=== PATIENT | female | born 1985 | race Caucasian/White ===

== ENCOUNTER 2017-06-11 10:48 | Emergency (ER) | payer SELFPAY ==
[2017-06-11 11:59] LABS: BACTERIA,URINE 0 /HPF (0-FEW); BILIRUBIN,URINE NEG (NEG); CLARITY,URINE CLEAR; COLOR,URINE YELLOW; GLUCOSE,URINE NEG (NEG); NITRITE,URINE NEG (NEG); RBC,URINE 0 /HPF (0-2); SPERM,URINE PRESENT /HPF; SQUAMOUS EPITHELIAL CELL,UR OCC /LPF; UROBILINOGEN,URINE 0.2 mg/dL (0.2 mg/dL); WBC,URINE 0 /HPF (0-4)
--- NOTE | 2017-06-11 12:21 | ED.ADGEN ---
Past History Past Medical History: Ovarian Cyst Past Surgical History: , Tubal ligation, Other Alcohol Use: Occasionally Drug Use: Marijuana Adult General Chief Complaint Chief Complaint Pelvic pain HPI HPI Patient is a 5-year-old female presents with intermittent pelvic pain weeks and dyspareunia last evening. Pain is located in the suprapubic region, described as dull and aching. It is rated moderate to severe worse with palpation and position change. It is improved with distraction. Patient denies flank pain, hematuria, urinary frequency and urgency. No history of kidney stones. Denies vaginal discharge or odor. Last menstrual period was 3 weeks ago. Previous tubal ligation and . No other abdominal surgeries. No other symptoms or complaints. Review of Systems Review of Systems Review symptoms as per history of present illness. All other review of symptoms negative. Current Medications Current Medications Current Medications Medications (Trade) Dose Ordered Sig/Juwan Start Time Stop Time Status Last Admin Dose Admin Acetaminophen/ Hydrocodone Bitart (Lortab 5/325) 1 tab 1X ONCE 06/11/17 12:30 06/11/17 12:31 DC 06/11/17 12:28 1 TAB Allergies Allergies Allergies Coded Allergies Type Severity Reaction Last Updated Verified cefazolin Allergy Unknown Rash 06/11/17 Yes morphine Allergy Unknown Rash 06/11/17 Yes ondansetron Allergy Unknown Nausea and Vomiting 06/11/17 Yes Physical Exam Physical Exam Constitutional: Well developed, well nourished, no acute distress, non-toxic appearance. [] HENT: Normocephalic, atraumatic, bilateral external ears normal, oropharynx moist, no oral exudates, nose normal. [] Eyes: PERRLA, EOMI, conjunctiva normal, no discharge. [] Neck: Normal range of motion, no tenderness, supple, no stridor. [] Cardiovascular:Heart rate regular rhythm, no murmur [] Lungs & Thorax: Bilateral breath sounds clear to auscultation [] Abdomen: Bowel sounds normal, soft, no tenderness, no masses, no pulsatile masses. : No vaginal discharge, no vaginal lesions. Cervix closed, no lesions , scant clear discharge, suprapubic pain, cervical motion pain. No adnexal masses or fullness. [] Skin: Warm, dry, no erythema. [] Back: No tenderness, no CVA tenderness. [] Extremities: No tenderness. [] Neurologic: Alert and oriented X 3, normal motor function, normal sensory function, no focal deficits noted. [] Psychologic: Affect normal, judgement normal, mood normal. [] Current Patient Data Vital Signs Vital Signs Date Time Temp Pulse Resp B/P (MAP) Pulse Ox O2 Delivery O2 Flow Rate FiO2 06/11/17 14:11 59 18 119/74 (89) 99 Room Air 06/11/17 10:50 98.3 Lab Results Laboratory Tests Test 06/11/17 11:35 06/11/17 11:50 Urine Collection Type Unknown Urine Color Yellow Urine Clarity Clear Urine pH 7.0 Urine Specific Stollings 1.015 Urine Protein Neg (NEG-TRACE) Urine Glucose (UA) Neg mg/dL (NEG) Urine Ketones (Stick) Neg mg/dL (NEG) Urine Blood Neg (NEG) Urine Nitrite Neg (NEG) Urine Bilirubin Neg (NEG) Urine Urobilinogen Dipstick 0.2 mg/dL (0.2 mg/dL) Urine Leukocyte Esterase Neg (NEG) Urine RBC 0 /HPF (0-2) Urine WBC 0 /HPF (0-4) Urine Squamous Epithelial Cells Occ /LPF Urine Bacteria 0 /HPF (0-FEW) Urine Sperm Present /HPF POC Urine HCG, Qualitative hcg negative (Negative) Microbiology 06/11/17 Wet Prep - Final, Complete EKG EKG [] Radiology/Procedures Radiology/Procedures [US pelvis: Collapsed left ovarian cyst. Essentially normal per radiology report.] Course & Med Decision Making Course & Med Decision Making Pertinent Labs and Imaging studies reviewed. (See chart for details) [Pelvic pain, undifferentiated. Possible collapsing left ovarian cyst. Recommend continued supportive care with outpatient [employer] follow-up. Return precautions reviewed.] Final Impression Final Impression [#1 pelvic pain and female] Problems: Dragon Disclaimer Dragon Disclaimer This electronic medical record was generated, in whole or in part, using a voice recognition dictation system. CORY RIVERA DO Jun 11, 2017 12:21
[2017-06-11] MEDS ORDERED: HYDROcodone/APAP 5/325MG 1 TAB TABLET PO ONE (12:30)
--- NOTE | 2017-06-11 13:40 | RAD ---
Exam performed: Pelvic Ultrasound. Indication: Intense pelvic pain for a few weeks. Patient's mother at 37 from ovarian cancer Date of Service: 06/11/17. Comparison: None available Technique: Transabdominal and transvaginal Findings: The uterus is anteverted and measures9.5 x 5.0 x 3.6 cm. The endometrial stripe measures 0.68 cm. There is trace amount of free fluid in the and endocervical canal. Both ovaries are normal. The right ovary measures 3.9 x 1.7 x 2.5 cm , the left ovary measures 4.5 x 2.7 x 3.4 cm. There is a complex cyst measuring 1.6 x 1.3 x 0.57 cm perhaps a collapsing cyst. There is no solid or cystic mass lesion. There is small amount of free fluid in the posterior cul-de-sac Impression: 1. Essentially unremarkable exam.
[2017-06-11 14:11] VITALS: BP 119/74
[2017-06-12 17:11] LABS: CHLAMYDIA PROBE Negative (Negative)
== END 2017-06-11 14:13 | disposition home or self-care (01) ==
LOC: ER 10:48
DX: R10.2 Pelvic and perineal pain (principal); N83.209 Unspecified ovarian cyst, unspecified side; Z98.51 Tubal ligation status; Z98.890 Other specified postprocedural states; Z88.5 Allergy status to narcotic agent; Z88.8 Allergy status to other drugs, medicaments and biological substances
CPT/HCPCS: 36415; 76830; 76856; 81001; 81025; 87491; 87591; 99285; Q0111

== ENCOUNTER 2021-08-01 21:03 | Emergency (ER) | payer BC ==
[~2021-08-01] VITALS: Ht 149.9 cm; Wt 56.0 kg
[2021-08-01 21:10] VITALS: BP 136/91
--- NOTE | 2021-08-01 21:41 | PHYS DOC ---
Past History Past Medical History: Ovarian Cyst (JOSÉ ANTONIO CLINTON APRN) Past Surgical History: , Tubal ligation, Other (JOSÉ ANTONIO CLINTON APRN) Alcohol Use: Occasionally Drug Use: Marijuana (JOSÉ ANTONIO CLINTON APRN) General Adult EDM: Chief Complaint: LACERATION/AVULSION HPI: HPI: Patient is a 36-year-old female who presents with laceration right index finger. Patient states "I was doing dishes when I was cleaning a knife and accidentally cut my finger". Patient has full range of motion and sensation intact. Bleeding is controlled. Tetanus not up-to-date. Denies medical history. (JOSÉ ANTONIO CLINTON APRN) Review of Systems: Review of Systems: ROS At least 10 ROS systems have been reviewed and are negative except as documented in the HPI. General: Negative except as outlined in HPI above. Skin: Negative except as outlined in HPI above. HEENT: Negative except as outlined in HPI above. Neck: Negative except as outlined in HPI above. Respiratory: Negative except as outlined in HPI above.. Cardiovascular: Negative except as outlined in HPI above. Abdomen: Negative except as outlined in HPI above. : Negative except as outlined in HPI above. Back/MSK: Negative except as outlined in HPI above. Neuro: Negative except as outlined in HPI above. Psych: Negative except as outlined in HPI above. (JOSÉ ANTONIO CLINTON APRN) Allergies: Allergies: Allergies Coded Allergies Type Severity Reaction Last Updated Verified cefazolin Allergy Unknown Rash 06/11/17 Yes morphine Allergy Unknown Rash 06/11/17 Yes ondansetron Allergy Unknown Nausea and Vomiting 06/11/17 Yes (JOSÉ ANTONIO CLINTON APRN) Physical Exam: PE: Constitutional: Well developed, well nourished, no acute distress, non-toxic appearance. [] HENT: Normocephalic, atraumatic, bilateral external ears normal, oropharynx moist, no oral exudates, nose normal. [] Eyes: PERRLA, EOMI, conjunctiva normal, no discharge. [] Neck: Normal range of motion, no tenderness, supple, no stridor. [] Cardiovascular:Heart rate regular rhythm, no murmur [] Lungs & Thorax: Bilateral breath sounds clear to auscultation [] Abdomen: Bowel sounds normal, soft, no tenderness, no masses, no pulsatile masses. [] Skin: Warm, dry, 1 inch laceration to right index finger Back: No tenderness, no CVA tenderness. [] Extremities: Right index finger tenderness, no cyanosis, no clubbing, ROM intact, no edema. [] Neurologic: Alert and oriented X 3, normal motor function, normal sensory function, no focal deficits noted. [] Psychologic: Affect normal, judgement normal, mood normal. [] (JOSÉ ANTONIO CLINTON APRN) EKG: EKG: [] (JOSÉ ANTONIO CLINTON APRN) Radiology/Procedures: Radiology/Procedures: [] (JOSÉ ANTONIO CLINTON APRN) Heart Score: C/O Chest Pain: No Risk Factors: Risk Factors: DM, Current or recent (<one month) smoker, HTN, HLP, family history of CAD, obesity. Risk Scores: Score 0 - 3: 2.5% MACE over next 6 weeks - Discharge Home Score 4 - 6: 20.3% MACE over next 6 weeks - Admit for Clinical Observation Score 7 - 10: 72.7% MACE over next 6 weeks - Early Invasive Strategies (JOSÉ ANTONIO CLINTON APRN) Course & Med Decision Making: Course & Med Decision Making Pertinent Labs and Imaging studies reviewed. (See chart for details) [] Laceration to right index finger. Range of motion and sensation is intact. Bleeding is controlled. Patient is stating that she does not want to get sutures. Patient is requesting laceration to be Steri-Stripped. Wound cleaned. Steri-Strips applied. Gauze placed over laceration. Tetanus shot updated. Discussed signs of infection and aftercare. Motrin and Tylenol at home for pain. (JOSÉ ANTONIO CLINTON APRN) Course & Med Decision Making Did not see or evaluate patient. Did not discuss patient with WATER PUMPER. Agree with WATER PUMPER's work-up and disposition per note. (ALTAGRACIA BULLOCK MD) Dragon Disclaimer: Dragon Disclaimer: This electronic medical record was generated, in whole or in part, using a voice recognition dictation system. (JOSÉ ANTONIO CLINTON APRN) Departure Departure: Impression: Primary Impression: Laceration Disposition: HOME / SELF CARE / HOMELESS Condition: STABLE Referrals: CECILIA LADD (PCP) Patient Instructions: Laceration Care, Child, [id number] Additional Instructions: You were seen in the emergency room for a laceration to your right index finger. Laceration was cleaned and Steri-Strips were applied. Your tetanus was updated. Please make sure you keep the wound clean and dry. Motrin and Tylenol at home for pain. Return to the emergency room if you have worsening symptoms or concerns. EMERGENCY DEPARTMENT GENERAL DISCHARGE INSTRUCTIONS Thank you for coming to [facility] (ED) today and trusting us with you care. We trust that you had a positivie experience in our Emergency Department. If you wish to speak to the department management, you may call the director at [phone]. YOUR FOLLOW UP INSTRUCTIONS ARE FOLLOWS: 1. Do you have a private Doctor? If you do not have a private doctor, please ask for a resource list of physicians or clinics that may be able to assist you with follow up care. 2. The Emergency Physician has interpreted your x-rays. The X-Ray specialist will also review them. If there is a change in the findings, you will be notified in 48 hours when at all possible. 3. A lab test or culture has been done, your results will be reviewed and you will be notified if you need a change in treatment. ADDITIONAL INSTRUCTIONS AND INFORMATION: 1. Your care today has been supervised by a physician who is specially trained in emergency care. Many problems require more than one evaluation for a complete diagnosis and treatment. We recommend that you schedule your follow up appointment as carlton mmended to ensure complete treatment of you illness or injury. If you are unable to obtain follow up care and continue to have a problem, or if your condition worsens, we recommend that you return to the ED. 2. We are not able to safely determine your condition over the phone nor are we able to give sound medical advice over the phone. For these safety reasons, if you call for medical advice we will ask you to come to the ED for further evaluation. 3. If you have any questions regarding these discharge instructions please call the ED at [phone]. SAFETY INFORMATION: In the interest of safety, wellness, and injury prevention; we encourage you to wear your sealbelt, if you smoke; quite smoking, and we encourage family to use a protective helmet for bicycling and other sporting events that present an increased risk for head injury. IF YOUR SYMPTOMS WORSEN OR NEW SYMPTOMS DEVELOP, OR YOU HAVE CONCERNS ABOUT YOUR CONDITION; OR IF YOUR CONDITION WORSENS WHILE YOU ARE WAITING FOR YOUR FOLLOW UP APPOINTMENT; EITHER CONTACT YOUR PRIMARY CARE DOCTOR, THE PHYSICIAN WHOSE NAME AND NUMBER YOU WERE GIVEN, OR RETURN TO THE ED IMMEDIATELY. JOSÉ ANTONIO CLINTON APRN Aug 01, 2021 21:41 ALTAGRACIA BULLOCK MD Aug 01, 2021 22:57
[2021-08-01] MEDS ORDERED: DIPH,PERTUSS(ACELL),TET VAC/PF 0.5 ML SYRINGE. VAX IM ONE (22:00)
== END 2021-08-01 22:35 | disposition home or self-care (01) ==
LOC: ER 21:03
DX: S61.210A Laceration without foreign body of right index finger without damage to nail, initial encounter (principal); Z88.5 Allergy status to narcotic agent; Z88.1 Allergy status to other antibiotic agents; W26.0XXA Contact with knife, initial encounter; Y93.89 Activity, other specified; Y92.89 Other specified places as the place of occurrence of the external cause; Y99.8 Other external cause status
CPT/HCPCS: 12001; 90471; 90715; 99283-25